=== PATIENT | female | born 1975 | race American Indian/Alaskan Native ===

== ENCOUNTER 2018-07-19 09:00 | Emergency (ER) | payer MEDICAID ==
[2018-07-19 09:15] VITALS: BP 119/81
--- NOTE | 2018-07-19 09:25 | EDM.PDOC ---
ED HPI GENERAL MEDICAL PROBLEM - General Chief Complaint: Respiratory Problem Stated Complaint: KIMBLE, fever, cough, aches Time Seen by Provider: 07/19/18 09:15 Source of Information: Reports: Patient, Old Records ([facility] EMR. No paper hospital chart available.), Significant Other History Limitations: Reports: No Limitations - History of Present Illness INITIAL COMMENTS - FREE TEXT/NARRATIVE: Patient was brought to the emergency room via private automobile by her significant other for evaluation of a fever of 104, occasional greenish productive cough, mild dyspnea, left sided otalgia, sore throat, generalized arthralgias, and bilateral sinus headaches with patient complaining of 8-10/10 discomfort. She did take 400 mg of ibuprofen yesterday evening with her significant other having similar type symptoms about 2-4 weeks ago. He did not follow-up with a provider at that time. Her significant other did get an influenza booster this season, however the patient did not get her influenza booster. She denies any other known exposure to infection including strep throat , mononucleosis, etc. She did miss work yesterday. No recent history of abdominal pain, heartburn, nausea, diarrhea, melena, gross hematochezia, or any food intolerance, including fatty foods, etc.. The patient denies any chest pain /pressure, heart flutter, dizziness, orthostasis, orthopnea, diaphoresis, paresthesias, recent decreased exercise tolerance, or any other anginal-type symptoms. She denies any gross hematuria, colic, or other UTI symptoms. Onset: Today, Gradual Onset Date: 07/18/18 Onset Time: 08:00 Duration: Constant, Getting Worse Location: Reports: Head, Generalized (Arthralgias as above), Other (As above). Denies: Face, Neck, Chest, Abdomen, Upper Extremity, Left, Upper Extremity, Right, Radiates to Quality: Reports: Ache, Same as Previous Episode Severity: Severe Improves with: Reports: None Worsens with: Reports: None Context: Reports: Sick Contact (As above). Denies: Trauma Associated Symptoms: Reports: Cough, cough w sputum, Fever/Chills, Headaches, Shortness of Breath. 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 (As above) KIMBLE, throat, lumbar, L) ear Pain Score (Numeric/FACES): 10 - Related Data Allergies Allergy/AdvReac Type Severity Reaction Status Date / Time hydrocodone AdvReac Hives Verified 07/19/18 09:12 IVP dye Allergy Anaphylactic Uncoded 07/19/18 09:06 Shock Home Meds: Home Meds Albuterol Sulfate [Albuterol Sulfate Hfa] 8.5 gm IH Q2H PRN #1 hfa.aer.ad [Rx] Cholecalciferol (Vitamin D3) [Vitamin D3] 2,000 units PO DAILY 07/19/18 [History ] Citalopram [Citalopram HBr] 10 mg PO DAILY 07/19/18 [History] Ibuprofen 400 - 600 mg PO Q6H PRN 07/19/18 [History] Levothyroxine 125 mcg PO ACBREAKFAST 07/19/18 [History] Oseltamivir [Tamiflu] 75 mg PO BID #10 cap 07/19/18 [Rx] Past Medical History Respiratory History: Reports: Asthma, Bronchitis, Recurrent, Pneumonia, Recurrent LMP (Approximate): Other (See Below) 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 Psychiatric History: Reports: Addiction, Anxiety, Depression Endocrine/Metabolic History: Reports: Hypothyroidism - Past Surgical History HEENT Surgical History: Reports: Oral Surgery, Other (See Below) Other HEENT Surgeries/Procedures: Multiple tooth extractions Social & Family History - Tobacco Use Smoking Status *Q: Current Every Day Smoker Tobacco Use Within Last Twelve Months: Cigarettes Years of Tobacco use: 20 Packs/Tins Daily: 0.5 Packs/Tins Daily Comment: Started smoking at age 22. Used Tobacco, but Quit: No Smoking Cessation Information Provided To Patient: Yes Second Hand Smoke Exposure: Yes Source of Second Hand Smoke Exposure: Significant other smokes Second Hand Smoke Education Provided: Yes - Alcohol Use Alcohol Use History: Yes Days Per Week of Alcohol Use: 7 Number of Drinks Per Day: 3 Total Drinks Per Week: 21 Total Drinks Per Week Comment: Usually beer Alcohol Use Frequency: Daily - Recreational Drug Use Recreational Drug Type: Reports: Amphetamines (Speed), Marijuana/Hashish, Methamphetamine, Other (see below). Denies: Cocaine, Heroin, Inhalants (Glues, Solvents, Aerosols), LSD (Acid), Morphine Other Recreational Drug Type: She does have a history of illicit drug use as above during her 20s however no apparent recent use by her history Recreational Drug Route: Reports: Inhaled. Denies: Intravenous - Sexual History Sexual History: Reports: Sexually Active - Living Situation & Occupation Living situation: Reports: with Significant Other (Raymac) Occupation: Employed ED ROS GENERAL - Review of Systems Review Of Systems: ROS reveals no pertinent complaints other than HPI. ED EXAM, GENERAL - Physical Exam Exam: See Below Exam Limited By: No Limitations General Appearance: Alert, WD/WN, No Apparent Distress, Anxious (Moderate) Eye Exam: Bilateral Eye: EOMI, Normal Inspection (No nystagmus) Ears: Normal External Exam, Normal Canal, Hearing Grossly Normal, Normal TMs Nose: Normal Mucosa, No Blood, Clear Rhinorrhea (Moderate bilateral) Throat/Mouth: Normal Lips, Normal Voice, No Airway Compromise. No: Normal Teeth (Multiple missing teeth with no acute caries), Normal Oropharynx (Trace erythema in the posterior pharynx with no pinpoint white exudates or peritonsillar abscess), Dysphagia, Perioral Cyanosis Head: Atraumatic, Normocephalic. No: Facial Swelling, Facial Tenderness, Sinus Tenderness Neck: Normal Inspection, Supple, Non-Tender, Full Range of Motion, Other ( Negative meningeal signs). No: Lymphadenopathy (L), Lymphadenopathy (R), Thyromegaly Respiratory/Chest: No Respiratory Distress, Lungs Clear, Normal Breath Sounds, No Accessory Muscle Use, Chest Non-Tender. No: Pleural Rub, Retractions Cardiovascular: Normal Peripheral Pulses, Regular Rate, Rhythm, No Edema, No Gallop, No JVD, No Murmur, No Rub. No: Gallop/S3, Gallop/S4, Friction Rub Peripheral Pulses: 2+: Radial (L), Radial (R), Dorsalis Pedis (L), Dorsalis Pedis (R) GI/Abdominal: Normal Bowel Sounds, Soft, Non-Tender, No Organomegaly, No Distention, No Abnormal Bruit, No Mass. No: Guarding (Female) Exam: Deferred Rectal (Female) Exam: Deferred Back Exam: Normal Inspection, Full Range of Motion. No: CVA Tenderness (L), CVA Tenderness (R), Muscle Spasm Extremities: Normal Inspection, Normal Range of Motion, Non-Tender, No Pedal Edema, Normal Capillary Refill. No: Alexandr's Sign Neurological: Alert, Oriented, CN II-XII Intact, Normal Cognition, Normal Gait, Normal Reflexes (Negative Babinski's and meningeal signs as above), No Motor/ Sensory Deficits Psychiatric: Anxious (Moderate), Depressed Mood (Mild to moderate with adequate eye contact) Skin Exam: Warm, Dry, Intact, Normal Color, No Rash, Stud(s), Tattoo(s). No: Diaphoretic, Ecchymosis, Jaundice, Pallor, Petechiae, Wound/Incision Lymphatic: No Adenopathy Course - Vital Signs Last Recorded V/S: Last Vital Signs Temp 38.1 C 07/19/18 09:05 Pulse 94 07/19/18 09:05 Resp 20 07/19/18 09:05 BP 119/81 07/19/18 09:05 Pulse Ox 95 07/19/18 09:05 Vital Signs - 24 hr 07/19/18 09:05 Temperature [ 38.1 C Oral] Pulse, 94 Peripheral [ Brachial] Respiratory 20 Rate Blood Pressure 119/81 [Left Upper Arm ] O2 Sat by Pulse 95 Oximetry - Orders/Labs/Meds Orders: Active Orders 24 hr Category Date Time Status Communication Order [RC] ROUTINE Care 07/19/18 09:25 Active Oxygen Therapy, ED [RC] PRN Care 07/19/18 09:25 Active Pulse Oximetry [RC] CONTINUOUS Care 07/19/18 09:25 Active Up With Assistance [RC] ASDIRECTED Care 07/19/18 09:25 Active Nothing Per Oral Diet [DIET] Diet 07/19/18 Breakfast Active Chest 2V [CR] Stat Exams 07/19/18 09:25 Taken CULTURE STREP A CONFIRMATION [RM] Stat Lab 07/19/18 09:08 Results CULTURE URINE [RM] Routine Lab 07/19/18 09:35 Received STREP SCRN A RAPID W CULT CONF [RM] Stat Lab 07/19/18 09:08 Results Obtain Past Medical Record [OM.PC] Stat Oth 07/19/18 09:25 Active Labs: Laboratory Tests 07/19/18 07/19/18 07/19/18 Range/Units 09:35 09:40 09:40 WBC 8.7 (4.0-10.2) K/uL RBC 4.36 (3.77-5.09) M/uL Hgb 14.2 (11.7-15.5) g/dL Hct 41.6 (34.0-46.0) % MCV 95.4 (84.0-98.0) fL MCH 32.6 (28.2-33.3) pg MCHC 34.1 (31.7-36.0) g/dL RDW 13.3 (11.2-14.1) % Plt Count 243 (150-350) K/uL Neut % (Auto) 80.5 H (45.0-80.0) % Lymph % (Auto) 9.4 L (10.0-50.0) % [place] % (Auto) 8.8 (2.0-14.0) % Eos % (Auto) 1.0 (0.0-5.0) % Baso % (Auto) 0.3 (0.0-2.0) % Neut # (Auto) 6.97 (1.40-7.00) K/uL Lymph # (Auto) 0.81 (0.50-3.50) K/uL [place] # (Auto) 0.76 (0.00-1.00) K/uL Eos # (Auto) 0.09 (0.00-0.50) K/uL Baso # (Auto) 0.03 (0.00-0.20) K/uL PT 10.3 (9.5-12.0) SEC INR 1.0 APTT 34.2 H (21.0-31.3) SEC Sodium (136-145) mmol/L Potassium (3.5-5.1) mmol/L Chloride (98-107) mmol/L Carbon Dioxide (21.0-32.0) mmol/L BUN (7-18) mg/dL Creatinine (0.51-1.17) mg/dL Est Cr Clr Drug Dosing mL/min Estimated GFR (MDRD) mL/min Glucose (74-106) mg/dL Lactic Acid (0.4-2.0) mmol/L Calcium (8.5-10.1) mg/dL Magnesium (1.8-2.4) mg/dL Total Bilirubin (0.2-1.0) mg/dL AST (15-37) U/L ALT (12-78) U/L Alkaline Phosphatase (46-116) IU/L Total Protein (6.4-8.2) g/dL Albumin (3.4-5.0) g/dL Specimen Type Urincc Urine Color Yellow Urine Appearance Clear Urine pH 7.0 (5.0-9.0) Ur Specific [place] 1.015 (1.005-1.030) Urine Protein Negative (NEGATIVE) mg/dL Urine Glucose (UA) Negative (NEGATIVE) mg/dL Urine Ketones Negative (NEGATIVE) mg/dL Urine Occult Blood Trace-lysed H (NEGATIVE) Urine Nitrite Negative (NEGATIVE) Urine Bilirubin Negative (NEGATIVE) Urine Urobilinogen 0.2 (0.2-1.0) E.U./dL Ur Leukocyte Esterase Negative (NEGATIVE) Urine RBC 5-10 H /HPF Urine WBC 0-5 /HPF Ur Epithelial Cells Few /LPF Urine Bacteria Rare (NONE TO FEW) /HPF 07/19/18 07/19/18 Range/Units 09:40 09:40 WBC (4.0-10.2) K/uL RBC (3.77-5.09) M/uL Hgb (11.7-15.5) g/dL Hct (34.0-46.0) % MCV (84.0-98.0) fL MCH (28.2-33.3) pg MCHC (31.7-36.0) g/dL RDW (11.2-14.1) % Plt Count (150-350) K/uL Neut % (Auto) (45.0-80.0) % Lymph % (Auto) (10.0-50.0) % [place] % (Auto) (2.0-14.0) % Eos % (Auto) (0.0-5.0) % Baso % (Auto) (0.0-2.0) % Neut # (Auto) (1.40-7.00) K/uL Lymph # (Auto) (0.50-3.50) K/uL [place] # (Auto) (0.00-1.00) K/uL Eos # (Auto) (0.00-0.50) K/uL Baso # (Auto) (0.00-0.20) K/uL PT (9.5-12.0) SEC INR APTT (21.0-31.3) SEC Sodium 138 (136-145) mmol/L Potassium 3.7 (3.5-5.1) mmol/L Chloride 102 (98-107) mmol/L Carbon Dioxide 24.3 (21.0-32.0) mmol/L BUN 6 L (7-18) mg/dL Creatinine 0.66 (0.51-1.17) mg/dL Est Cr Clr Drug Dosing 80.57 mL/min Estimated GFR (MDRD) > 60 mL/min Glucose 112 H (74-106) mg/dL Lactic Acid 1.2 (0.4-2.0) mmol/L Calcium 7.3 L (8.5-10.1) mg/dL Magnesium 1.9 (1.8-2.4) mg/dL Total Bilirubin 0.2 (0.2-1.0) mg/dL AST 16 (15-37) U/L ALT 23 (12-78) U/L Alkaline Phosphatase 72 (46-116) IU/L Total Protein 8.0 (6.4-8.2) g/dL Albumin 3.9 (3.4-5.0) g/dL Specimen Type Urine Color Urine Appearance Urine pH (5.0-9.0) Ur Specific [place] (1.005-1.030) Urine Protein (NEGATIVE) mg/dL Urine Glucose (UA) (NEGATIVE) mg/dL Urine Ketones (NEGATIVE) mg/dL Urine Occult Blood (NEGATIVE) Urine Nitrite (NEGATIVE) Urine Bilirubin (NEGATIVE) Urine Urobilinogen (0.2-1.0) E.U./dL Ur Leukocyte Esterase (NEGATIVE) Urine RBC /HPF Urine WBC /HPF Ur Epithelial Cells /LPF Urine Bacteria (NONE TO FEW) /HPF Urine specimen set up for culture and sensitivity Meds: Medications Discontinued Medications Generic Name Dose Route Start Last Admin Trade Name Freq PRN Reason Stop Dose Admin Acetaminophen 650 mg 07/19/18 09:25 07/19/18 09:57 Tylenol PO 07/19/18 09:26 650 mg ONETIME ONE Administration - Radiology Interpretation Free Text/Narrative:: Chest X-ray, PA and lateral, shows evidence of mild to moderate pulmonary obstructive disease with no pulmonary infiltrates, CHF, cardiomegaly, pneumothorax, etc. Departure - Departure Time of Disposition: 11:00 Disposition: Home, Self-Care 01 Condition: Good Clinical Impression: Influenza A, URI due to influenza A virus, Tobacco abuse counseling, Hypothyroidism (acquired), Mixed anxiety depressive disorder Asthma Qualifiers: Asthma severity: mild Asthma persistence: persistent Asthma complication type: uncomplicated Qualified Code(s): J45.30 - Mild persistent asthma, uncomplicated - Discharge Information *PRESCRIPTION DRUG MONITORING PROGRAM REVIEWED*: Not Applicable *COPY OF PRESCRIPTION DRUG MONITORING REPORT IN PATIENT MAULIK: Not Applicable Prescriptions: Albuterol Sulfate [Albuterol Sulfate Hfa] 8.5 gm IH Q2H PRN #1 hfa.aer.ad PRN Reason: Wheezing/SOB Oseltamivir [Tamiflu] 75 mg PO BID #10 cap Instructions: Influenza, Adult, [id number] Referrals: PCP,Not In Area [Primary Care Provider] - Forms: ED Department Discharge, ED Return to Work/School Form Additional Instructions: 1. Follow up with your regular provider in 10-14 days as needed, if symptoms persist. Bring these discharge instructions with you to that visit.. 2. Tylenol 650 mg by mouth every 4 hours and/or OTC ibuprofen 2-3 tabs by mouth every 6 hours with food as directed./needed. You may stagger these medications for 48-72 hours only, which essentially means that you are receiving a pain medication about every 2 hours. 3. Hygiene precautions as discussed 4. Stop all tobacco use TAYLOR as directed/per provided information and consider contacting [employer]uit [employer], etc.. 5. Work excuse 6. Immediately after this visit verify that your cellular telephone's voicemail has been activated and is empty. Also verify that your home telephone 's answering machine is operating properly and has space to receive messages. Note that it is sometimes necessary for us to be able to contact you at a later date to discuss your medical care. 7. Please remember that we are ALWAYS here for you and want to answer any questions you may have. Feel free to call the hospital any time and we call you back TAYLOR. - Problem List & Annotations (1) Influenza A SNOMED Code(s): 807622358 Code(s): J10.1 - FLU DUE TO OTH IDENT INFLUENZA VIRUS W OTH RESP MANIFEST Status: Acute Priority: High Current Visit: Yes Onset Date: ~07/18/18 Annotation/Comment:: Patient's symptoms started yesterday with initiation of Tamiflu today. She was strongly encouraged to obtain an influenza booster this season after current symptoms improve/resolve with yearly influenza boosters also strongly recommended in the future. Hygiene issues discussed. Work excuse was provided. Symptomatic relief as per discharge instructions. (2) Asthma SNOMED Code(s): 534322563 Code(s): J45.909 - UNSPECIFIED ASTHMA, UNCOMPLICATED Status: Chronic Priority: Medium Current Visit: Yes Annotation/Comment:: Despite recent influenza A infection as above she has not been using her inhaler. She apparently has run out of this prescription with one refill provided today. Tobacco cessation strongly encouraged as below. Tinnitus observe closely by her regular provider. No significant bronchitic type symptoms or asthma exacerbation at this time. Qualifiers: Asthma severity: mild Asthma persistence: persistent Asthma complication type: uncomplicated Qualified Code(s): J45.30 - Mild persistent asthma, uncomplicated (3) Hypothyroidism (acquired) SNOMED Code(s): 929408762 Code(s): E03.9 - HYPOTHYROIDISM, UNSPECIFIED Status: Chronic Priority: Medium Current Visit: Yes Annotation/Comment:: Currently under therapy (4) Mixed anxiety depressive disorder SNOMED Code(s): 056204021 Code(s): F41.8 - OTHER SPECIFIED ANXIETY DISORDERS Status: Chronic Priority: Medium Current Visit: Yes Annotation/Comment:: Moderate control based on today's exam. Continue to observe closely by her regular provider. Note history of illicit drug use in the past with patient stating that she has not been using these substances recently. (5) Tobacco abuse counseling SNOMED Code(s): 932914905, 562377842, 216741896 Code(s): Z71.6 - TOBACCO ABUSE COUNSELING Status: Chronic Priority: Medium Current Visit: Yes Annotation/Comment:: The patient and her significant other were strongly encouraged to stop all tobacco use TAYLOR with information provided at discharge. (6) URI due to influenza A virus SNOMED Code(s): 599716194762506 Code(s): J11.1 - FLU DUE TO UNIDENTIFIED INFLUENZA VIRUS W OTH RESP MANIFEST Status: Acute Priority: High Current Visit: Yes Onset Date: ~07/18/18 Annotation/Comment:: Symptomatic relief as above. Mild pharyngitis and borderline bronchitic type symptoms as above. - Problem List Review Problem List Initiated/Reviewed/Updated: Yes - My Orders Last 24 Hours: My Active Orders 07/19/18 09:08 CULTURE STREP A CONFIRMATION [RM] Stat STREP SCRN A RAPID W CULT CONF [RM] Stat 07/19/18 09:25 Communication Order [RC] ROUTINE Oxygen Therapy, ED [RC] PRN Pulse Oximetry [RC] CONTINUOUS Up With Assistance [RC] ASDIRECTED Chest 2V [CR] Stat Obtain Past Medical Record [OM.PC] Stat 07/19/18 09:35 CULTURE URINE [RM] Routine 07/19/18 Breakfast Nothing Per Oral Diet [DIET] - Assessment/Plan Last 24 Hours: My Active Orders 07/19/18 09:08 CULTURE STREP A CONFIRMATION [RM] Stat STREP SCRN A RAPID W CULT CONF [RM] Stat 07/19/18 09:25 Communication Order [RC] ROUTINE Oxygen Therapy, ED [RC] PRN Pulse Oximetry [RC] CONTINUOUS Up With Assistance [RC] ASDIRECTED Chest 2V [CR] Stat Obtain Past Medical Record [OM.PC] Stat 07/19/18 09:35 CULTURE URINE [RM] Routine 07/19/18 Breakfast Nothing Per Oral Diet [DIET] Assessment:: As above Plan: As above. Extensive precautions were given to the patient and her significant other, who are in agreement with the treatment plan. See Patient Instructions for further treatment and plan.
[2018-07-19] MEDS: Acetaminophen 325 MG Tab PO ONE (09:57)
[2018-07-19 10:04] LABS: CHLORIDE,CL 102 mmol/L (98-107); SODIUM,NA 138 mmol/L (136-145)
== END 2018-07-19 10:55 | disposition home or self-care (01) ==
LOC: LL.ED 09:00
DX: J10.1 Influenza due to other identified influenza virus with other respiratory manifestations (principal); J45.30 Mild persistent asthma, uncomplicated; E03.9 Hypothyroidism, unspecified; Z71.6 Tobacco abuse counseling; F41.8 Other specified anxiety disorders; F17.210 Nicotine dependence, cigarettes, uncomplicated; Z79.899 Other long term (current) drug therapy; Z88.6 Allergy status to analgesic agent; Z91.041 Radiographic dye allergy status
CPT/HCPCS: 36415; 71046; 80053; 81001; 83605; 83735; 85025; 85610; 85730; 87081; 87086; 87430; 87804; 99283-25; A9270-GY